=== PATIENT | female | born 1965 | race Two or more races ===

== ENCOUNTER 2023-11-29 21:55 | Emergency (ER) | payer OTHER ==
[~2023-11-29] VITALS: Ht 167.6 cm; Wt 68.0 kg
[2023-11-29] MEDS ORDERED: SUMATRIPTAN SUCCINATE 6 MG/0.5 ML VIAL SQ ONE (22:17)
[2023-11-29] MEDS ORDERED: MECLIZINE HCL 25 MG TABLET ONE (22:17)
[2023-11-29] MEDS ORDERED: METOCLOPRAMIDE HCL 10 MG/2 ML VIAL ONE (22:18)
[2023-11-29] MEDS: MECLIZINE HCL 12.5 MG TABLET PO ONE (22:29)
[2023-11-29] MEDS: METOCLOPRAMIDE HCL 10 MG/2 ML VIAL IV ONE (22:29)
[2023-11-29] MEDS: IV NS 0.9% 1,000 ML BAG IV ONE (22:29)
[2023-11-29] MEDS: SUMATRIPTAN SUCCINATE 6 MG/0.5 ML VIAL SQ ONE (22:29)
[2023-11-29 22:34] LABS: BASOPHILS % (AUTO) 0.4 % (0.0-2.0); EOSINOPHILS # (AUTO) 0.1 K/uL (0.0-0.7); EOSINOPHILS % (AUTO) 1.1 % (0.0-6.0); HEMATOCRIT 38 % (33-45); HEMOGLOBIN 12.9 g/dL (11.5-14.8); LYMPHOCYTES # (AUTO) 2.2 K/uL (0.8-4.8); LYMPHOCYTES % (AUTO) 20.4 % (20.0-44.0); MEAN CORPUSCULAR HEMOGLOBIN 30 PG (26.0-33.0); MEAN CORPUSCULAR HGB CONC 34 g/dl (31.0-36.0); MEAN CORPUSCULAR VOLUME 88 fL (82-100); MONOCYTES # (AUTO) 0.7 K/uL (0.1-1.30); MONOCYTES % (AUTO) 6.6 % (2.0-12.0); NEUTROPHILS # (AUTO) 7.7 K/uL (1.8-8.9); NEUTROPHILS % (AUTO) 71.5 % (43.0-81.0); PLATELET COUNT (AUTO) 205 K/uL (150-450); RED BLOOD CELL COUNT(AUTO) 4.36 MIL/uL (4.0-5.2); RED CELL DISTRIBUTION WIDTH 12.8 % (11.5-15.0); WHITE BLOOD COUNT (AUTO) 10.7 K/uL (4.3-11.0)
[2023-11-29] MEDS ORDERED: KETOROLAC TROMETHAMINE 15 MG/ML VIAL ONE (22:36)
[2023-11-29] MEDS: KETOROLAC TROMETHAMINE 15 MG/ML VIAL IV ONE (22:41)
[2023-11-29 22:46] LABS: CALCIUM, SERUM 9.9 mg/dL (8.5-10.1); CARBON DIOXIDE 29 mmol/L (21-32); CHLORIDE 104 mmol/L (98-107); CREATININE 0.6 mg/dL (0.6-1.3); GLUCOSE 116 mg/dL (74-106); POTASSIUM 3.8 mmol/L (3.5-5.1); SODIUM SERUM 140 mmol/L (136-145); UREA NITROGEN, BLOOD 16 mg/dL (7-18)
[2023-11-29] MEDS ORDERED: MECL-159 PO (23:12)
[2023-11-29] MEDS ORDERED: KETO10TA2 PO (23:12)
[2023-11-29] MEDS ORDERED: SUMA100T PO (23:12)
[2023-11-29 23:42] VITALS: BP 114/60; TEMP 98; O2SAT 98
== END 2023-11-29 23:44 | disposition home or self-care (01) ==
LOC: ER 21:58
DX: I10 Essential (primary) hypertension (principal); R51.9 Headache, unspecified; Z79.899 Other long term (current) drug therapy; Z60.2 Problems related to living alone
CPT/HCPCS: 99284; 96374; 96361; 96375; 93005; 85025; 80048; 36415; 84484; 96372; J8597; J3030; J2765; J7030; J1885

== ENCOUNTER 2024-06-22 19:21 | Emergency (ER) | payer OTHER ==
[~2024-06-22] VITALS: Ht 154.9 cm; Wt 74.8 kg
[~2024-06-22 19:21] MED LIST: KETO10TA2 PO; MECL-159 PO; SUMA100T PO
[2024-06-22 21:38] VITALS: BP 149/77; TEMP 98.3; O2SAT 100
[2024-06-22] MEDS ORDERED: IBUPROFEN 400 MG TABLET PO ONE (22:30)
[2024-06-22] MEDS ORDERED: IBUPROFEN 400 MG TABLET ONE (22:35)
== END 2024-06-22 22:40 | disposition home or self-care (01) ==
LOC: ER 19:22
DX: R51.9 Headache, unspecified (principal); R50.9 Fever, unspecified; I10 Essential (primary) hypertension; Z85.3 Personal history of malignant neoplasm of breast; Z60.2 Problems related to living alone